=== PATIENT | female | born 1985 | race Caucasian/White ===

== ENCOUNTER 2016-05-02 23:09 | Emergency (ER) | payer BC, OTHER ==
[2016-05-02 23:16] VITALS: BP 118/83; PULSE 70; TEMP 98.4; BMI 20.7
[2016-05-02] MEDS ORDERED: AMOX TR/POT CLAV 875MG/125MG TABLETS (FP) PO ONE (23:21)
[2016-05-02] MEDS ORDERED: AMOX TR/POT CLAV 875MG/125MG TABLETS (FP) ONE (23:26)
--- NOTE | 2016-05-02 23:28 | PDOC ---
History of Present Illness - General Chief Complaint: Bite Stated Complaint: FACIAL DOG BITE History Source: Patient Exam Limitations: No Limitations - History of Present Illness Initial Comments: 05/02/16 23:22 30 y f nigrains, depression; bitten on face by her aunt's dog when she woke it from its sleep trying to kiss it. dog is utd on vaccines. no other trauma. in ed , in [place]. Past History - Past Medical History Allergies/Adverse Reactions: Allergies Allergy/AdvReac Type Severity Reaction Status Date / Time No Known Allergies Allergy Unverified 05/02/16 23:14 Home Medications: Ambulatory Orders Amoxicillin/Potassium Clav [Augmentin 875-125 Tablet] 1 each PO BID #20 tablet 05/02/16 GI Disorders: Yes (GASTROPARESIS) Psychiatric Problems: Yes (ANXIETY, DEPRESSION) Other medical history: NARCOLEPSY - Immunization History Immunization Up to Date: Yes - Psycho/Social/Smoking Cessation Hx Anxiety: Yes Suicidal Ideation: No Smoking History: Never smoked Have you smoked in the past 12 months: No Information on smoking cessation initiated: No Review of Systems - Review of Systems Able to Perform ROS?: Yes Is the patient limited Guatemalan proficient: No Constitutional: No: Symptoms Reported HEENTM: No: Symptoms Reported Respiratory: No: Symptoms reported All Other Systems: Reviewed and Negative *Physical Exam - Vital Signs Last Vital Signs Temp Pulse Resp BP Pulse Ox 98.4 F 70 18 118/83 100 05/02/16 23:14 05/02/16 23:14 05/02/16 23:14 05/02/16 23:14 05/02/16 23:14 - Physical Exam General Appearance: Yes: Nourished, Appropriately Dressed. No: Apparent Distress HEENT: positive: EOMI, ALEX, Normal ENT Inspection Neck: positive: Supple. negative: Tender Respiratory/Chest: negative: Respiratory Distress Cardiovascular: positive: Regular Rhythm, Regular Rate Integumentary: positive: Normal Color, Other (abrasions rt face next to nasal alae w/ dry blood inside rt nostril. no obvious laceration. abrasions lt side periorbital. eye exam clear) Neurologic: positive: Fully Oriented, Alert, Normal Mood/Affect, Normal Response , Motor Strength 5/5 Progress Note - Progress Note Progress Note: dog bite resulting in abrasion and blunt nasal trauma. Augmentin. no rabies prophylaxis needed *DC/Admit/Observation/Transfer Diagnosis at time of Disposition: Dog bite of ala nasi Qualifiers: Encounter type: initial encounter Qualified Code(s): S01.25XA - Open bite of nose, initial encounter; W54.0XXA - Bitten by dog, initial encounter - Discharge Dispostion Disposition: HOME Condition at time of disposition: Stable Admit: No - Prescriptions Prescriptions: Amoxicillin/Potassium Clav [Augmentin 875-125 Tablet] 1 each PO BID #20 tablet - Patient Instructions Printed Discharge Instructions: How to Care for a Domestic Animal Bite Additional Instructions: CLEAN AREA WITH SOAP AND WATER BACITRACIN TO AFFECTED AREAS (INCLUDING NOSTRIL) TWICE A DAY TAKE ANTIBIOTICS PRESCRIBED SEE YOUR DOCTOR THIS WEEK OBSERVE THE DOG FOR CHANGES IN BEHAVIOUR RETURN IF WORSENING OR NEW SYMPTOMS
== END 2016-05-02 23:31 | disposition home or self-care (01) ==
LOC: FER 23:09
DX: S01.25XA Open bite of nose, initial encounter (principal); W54.0XXA Bitten by dog, initial encounter; Y93.89 Activity, other specified; Y92.89 Other specified places as the place of occurrence of the external cause; G47.419 Narcolepsy without cataplexy; F41.9 Anxiety disorder, unspecified; K31.84 Gastroparesis; F41.8 Other specified anxiety disorders
CPT/HCPCS: 99281-25